=== PATIENT | female | born 1990 | race Caucasian/White ===

== ENCOUNTER 2016-04-26 09:55 | Emergency (ER) | payer BC ==
--- NOTE | 2016-04-26 11:57 | UC ---
Throat Pain/Nasal Adonay HPI - HPI Summary HPI Summary: complaint of nasal congestion and couth that started 3 days ago extremely painful sore throat occasional coughing fits bilateral ear pain denies headaches denies fever but has had chills taking cold lozenges and sudafed with minimal relief. - History of Current Complaint Stated Complaint: UPPER RESPIRATORY Time Seen by Provider: 04/26/16 11:50 Hx Obtained From: Patient Hx Last Menstrual Period: 10/16/15 ?: No Cough: Nonproductive - Allergies/Home Medications Allergies/Adverse Reactions: Allergies Allergy/AdvReac Type Severity Reaction Status Date / Time CONTROLL WITH ESTROGEN Allergy Intermediate WEIGHT GAIN Uncoded 04/26/16 12:12 PMH/Surg Hx/FS Hx/Imm Hx Previously Healthy: Yes Endocrine History Of: Denies: Diabetes Cardiovascular History Of: Denies: Cardiac Disorders Respiratory History Of: Denies: Asthma Psychological History Of: Reports: Anxiety, Depression - Surgical History Surgical History: None - Family History Known Family History: Positive: Cardiac Disease - grandmother, Hypertension Negative: Diabetes - Social History Occupation: Employed Full-time Lives: With Family Alcohol Use: Occasionally Substance Use Type: None, Marijuana Substance Use Comment - Amount & Last Used: RARELY Smoking Status (MU): Light Every Day Tobacco Smoker Type: Cigarettes Amount Used/How Often: 1/2 PPD Household Exposure Type: Cigarettes Cessation Counseling: Patient Advised to Stop Review of Systems Constitutional: Chills Skin: Negative Eyes: Negative ENT: Sore Throat, Ear Ache, Nasal Discharge Respiratory: Cough Cardiovascular: Negative Gastrointestinal: Negative Genitourinary: Negative Motor: Negative Neurovascular: Negative Musculoskeletal: Negative Neurological: Negative Psychological: Negative All Other Systems Reviewed And Are Negative: Yes Physical Exam Triage Information Reviewed: Yes Appearance: No Pain Distress, Well-Nourished, Ill-Appearing Vital Signs Reviewed: Yes Eyes: Positive: Conjunctiva Clear ENT: Positive: Pharyngeal erythema, Nasal congestion, TMs normal. Negative: Tonsillar swelling, Tonsillar exudate Dental: Negative: Cervical Lymphadenopathy Neck: Positive: No Lymphadenopathy Respiratory: Positive: Lungs clear, Normal breath sounds, No respiratory distress Cardiovascular: Positive: RRR, No Murmur, Pulses Normal Abdomen Description: Positive: Nontender, Soft Bowel Sounds: Positive: Present Musculoskeletal: Positive: No Edema Neurological: Positive: Alert Psychological Exam: Normal Skin Exam: Normal Throat Pain/Nasal Course/Dx - Differential Dx/Diagnosis Differential Diagnosis/HQI/PQRI: Pharyngitis, Tonsillitis, URI Provider Diagnoses: URI Discharge - Discharge Plan Condition: Stable Disposition: HOME Prescriptions: Benzonatate CAP* [Tessalon CAP*] 100 mg PO TID PRN #30 cap PRN Reason: Cough Patient Education Materials: Upper Respiratory Infection (ED) Referrals: No Primary Care Phys,NOPCP [Primary Care Provider] - [facility] [place] [facility] [Outside] Additional Instructions: VIRAL UPPER RESPIRATORY INFECTION (COMMON COLD) What is Viral Upper Respiratory Infection? Viral upper respiratory infection is the medical term for the common cold. Respiratory infections can be caused by either a virus or bacteria. The common cold is caused by a virus. The virus travels through the air and can be passed easily from one person to another. This is one reason that it is so important to cover your mouth when you cough or sneeze. When you cover your mouth you will get the virus on your hands. If you touch something with that hand the virus is spread to the object you touch. Because of this you should be sure to wash your hands often when you have a cold. Symptoms usually begin 1 to 3 days after the virus takes hold in your body. Other people can catch your cold even before you start to notice symptoms, which is one reason why colds are hard to prevent. Symptoms May Include: Scratchiness or tickling in the throat Sore throat Stuffy nose Generalized aches and pains Coughing or sneezing Feeling tired Treatment Recommendations: Drink plenty of clear, nonalcoholic fluids, such as water, sports drinks, or juice. For example, an average adult should drink 8 ounces every hour, a child 6 to 10 years should drink 4 ounces every hour, and a child under 6 should drink 1 to 2 ounces every hour. You should rest as much as possible. You can use a cool-mist humidifier or steam vaporizer to increase air moisture. This will make it easier to breathe. Remember that a steam vaporizer may contain hot water that can cause severe feliciano. If you smoke, stopsmoke irritates bronchial passages. If you are coughing up mucus, and milk seems to make the sputum thicker, do not eat or drink foods that contain milk. You want to try to cough up mucous whenever possible so that you dont get pneumonia. Do not use cough suppressant medicine without your healthcare providers [place]. You should take all medications prescribed until completely gone, or as instructed. Non-prescription medicine such as acetaminophen (Tylenol) or ibuprofen (Motrin , Advil) may help your aches, pains, and fever. Do not take someone else's medicine, or penicillin tablets that you may have saved. You could cause a more serious problem than you already have. Don't bundle up to sweat out a fever. It only makes your fever worse. If you feel cold, cover up; if you feel warm, dress lightly.
[2016-04-26 12:12] VITALS: BP 113/73
== END 2016-04-26 12:26 | disposition home or self-care (01) ==
LOC: UCCORT 09:55
DX: J06.9 Acute upper respiratory infection, unspecified (principal); F12.90 Cannabis use, unspecified, uncomplicated; F17.210 Nicotine dependence, cigarettes, uncomplicated
CPT/HCPCS: 99212; G0463

== ENCOUNTER 2016-11-12 08:23 | Emergency (ER) | payer BC ==
[2016-11-12] MEDS ORDERED: NS 0.9% 1000 ML* 1,000 ML BOLUS ONE (09:31)
[2016-11-12] MEDS ORDERED: Dexamethasone IV* 4 MG/ML 1 ML (4 MG) IV SLOW PU ONE (09:32)
[2016-11-12] MEDS ORDERED: cefTRIAXone VIAL(*) 1,000 MG in NS 0.9% 50 ML* 50 ML IVPB ONE (09:32)
[2016-11-12] MEDS ORDERED: Ketorolac INJ* 30 MG/ML 1 ML VIAL IV ONE (09:33)
--- NOTE | 2016-11-12 09:43 | UC ---
Throat Pain/Nasal Adonay HPI - HPI Summary HPI Summary: 25 yo female with L>R sore throat x 2 days fever chills myalgias today can not tolerate liquids nausea but no vomiting - History of Current Complaint Chief Complaint: UCGeneralIllness Stated Complaint: SORE THROAT Time Seen by Provider: 11/12/16 08:56 Hx Obtained From: Patient Hx Last Menstrual Period: 11/01/16 Onset/Duration: Gradual Onset, Lasting Days Severity: Severe Pain Intensity: 10 Pain Scale Used: 0-10 Numeric Associated Signs & Symptoms: Positive: Dysphagia, Fever, Vomiting. Negative: FB Sensation, Drooling, Wheezing, Hoarseness, Sinus Discomfort, Nasal Discharge , Rash - Epiglottits Risk Factors Epiglottis Risk Factors: Negative - Allergies/Home Medications Allergies/Adverse Reactions: Allergies Allergy/AdvReac Type Severity Reaction Status Date / Time CONTROLL WITH ESTROGEN Allergy Intermediate WEIGHT GAIN Uncoded 11/12/16 08:43 PMH/Surg Hx/FS Hx/Imm Hx Previously Healthy: Yes - Surgical History Surgical History: None - Family History Known Family History: Positive: Cardiac Disease - grandmother, Hypertension Negative: Diabetes - Social History Alcohol Use: Rare Substance Use Type: Marijuana Substance Use Comment - Amount & Last Used: 11/10/16 Smoking Status (MU): Current Some Day Smoker Type: Cigarettes Amount Used/How Often: 3-5 CIGS/DAY Household Exposure Type: Cigarettes - Immunization History Most Recent Influenza Vaccination: NONE 2015 Review of Systems Constitutional: Fever, Chills, Fatigue Skin: Negative Eyes: Negative ENT: Sore Throat Respiratory: Negative Cardiovascular: Negative Gastrointestinal: Nausea Genitourinary: Negative Motor: Negative Neurovascular: Negative Musculoskeletal: Myalgia Neurological: Headache Psychological: Negative All Other Systems Reviewed And Are Negative: Yes Physical Exam Triage Information Reviewed: Yes Appearance: No Pain Distress, Well-Nourished Vital Signs: Initial Vital Signs Temp 99.7 F 11/12/16 08:46 Pulse 120 11/12/16 08:46 Resp 18 11/12/16 08:46 BP 107/68 11/12/16 08:46 Pulse Ox 100 11/12/16 08:46 Vital Signs Reviewed: Yes Eyes: Positive: Conjunctiva Clear ENT: Positive: Hearing grossly normal, Pharyngeal erythema, TMs normal, Tonsillar swelling, Tonsillar exudate, Other: - MID LINE UVULA/ NO BENITO TONSILLAR ABSCESS NOTED. Negative: Nasal congestion, Nasal drainage, Trismus, Muffled/hoarse voice Neck: Positive: Supple, Tenderness @ - left cervical LNs, Enlarged Nodes @ - L> R cervical Respiratory: Positive: Lungs clear, Normal breath sounds, No respiratory distress, No accessory muscle use Cardiovascular: Positive: RRR, No Murmur, Tachycardia Abdomen Description: Positive: Nontender, No Organomegaly, Soft. Negative: CVA Tenderness (R), CVA Tenderness (L), Hepatomegaly, Splenomegaly Bowel Sounds: Positive: Present Musculoskeletal: Positive: ROM Intact, No Edema Neurological: Positive: Alert Psychological Exam: Normal Skin Exam: Normal Re-Evaluation - Re-Evaluation First Eval Re-Evaluation Time: 10:09 Change: Improved - feeling a little better Second Eval Re-Evaluation Time: 11:04 Change: Improved - no more pain Throat Pain/Nasal Course/Dx - Course Course Of Treatment: markedly improved after hydration and IV meds - Differential Dx/Diagnosis Provider Diagnoses: acute exudative tonsillitis. dehydration Discharge - Discharge Plan Condition: Stable Disposition: HOME Prescriptions: Cephalexin CAP* [Keflex CAP*] 500 mg PO BID #20 cap Patient Education Materials: Tonsillitis (ED) Forms: *Work Release Referrals: No Primary Care Phys,NOPCP [Primary Care Provider] - Additional Instructions: rest fluids tylenol or advil if needed You can start your antibiotic tonight recheck in 48-72 hours if not better recheck sooner for worsening symptoms
[2016-11-12] MEDS ORDERED: cefTRIAXone VIAL(*) 1,000 MG VIAL ONE (09:48)
[2016-11-12 10:46] VITALS: BP 113/60
== END 2016-11-12 11:20 | disposition home or self-care (01) ==
LOC: UCCORT 08:23
DX: J03.90 Acute tonsillitis, unspecified (principal); E86.0 Dehydration; R11.10 Vomiting, unspecified; R50.9 Fever, unspecified; Z72.0 Tobacco use
CPT/HCPCS: 87651; 96361; 96365; 96375; 99212; G0463; J0696; J1100; J1885

== ENCOUNTER 2016-12-05 08:05 | Emergency (ER) | payer BC ==
[2016-12-05 08:22] VITALS: BP 111/68
--- NOTE | 2016-12-05 08:52 | UC ---
Throat Pain/Nasal Adonay HPI - HPI Summary HPI Summary: seen her a few weeks ago with "tonsillitis" rx with Keflex, seemed to get a little better but now pain swelling and exudates have returned as well as pain in right ear - History of Current Complaint Chief Complaint: UCRespiratory Stated Complaint: SORE THROAT Time Seen by Provider: 12/05/16 08:40 Hx Obtained From: Patient Hx Last Menstrual Period: 11/01/16 ?: No Onset/Duration: Gradual Onset, Worse Since - past few days Severity: Moderate Pain Intensity: 7 Pain Scale Used: 0-10 Numeric Cough: None Associated Signs & Symptoms: Positive: Other - hurts to swallow - Allergies/Home Medications Allergies/Adverse Reactions: Allergies Allergy/AdvReac Type Severity Reaction Status Date / Time CONTROLL WITH ESTROGEN Allergy Intermediate WEIGHT GAIN Uncoded 12/05/16 08:17 PMH/Surg Hx/FS Hx/Imm Hx Previously Healthy: Yes - Surgical History Surgical History: None - Family History Known Family History: Positive: Cardiac Disease - grandmother, Hypertension Negative: Diabetes - Social History Occupation: Unemployed Lives: With Family Alcohol Use: Rare Substance Use Type: None Substance Use Comment - Amount & Last Used: 11/10/16 Smoking Status (MU): Former Smoker Type: Cigarettes Amount Used/How Often: 3-5 CIGS/DAY Household Exposure Type: Cigarettes - Immunization History Most Recent Influenza Vaccination: NONE 2016 Review of Systems Constitutional: Negative Skin: Negative Eyes: Negative ENT: Sore Throat, Ear Ache - right Respiratory: Negative Cardiovascular: Negative Gastrointestinal: Negative Genitourinary: Negative Motor: Negative Neurovascular: Negative Musculoskeletal: Negative Neurological: Negative Psychological: Negative Is Patient Immunocompromised?: No All Other Systems Reviewed And Are Negative: Yes Physical Exam Triage Information Reviewed: Yes Appearance: Well-Nourished, Ill-Appearing - mild, Pain Distress - mild Vital Signs: Initial Vital Signs Temp 99 F 12/05/16 08:18 Pulse 90 12/05/16 08:18 Resp 18 12/05/16 08:18 BP 111/68 12/05/16 08:18 Pulse Ox 100 12/05/16 08:18 Vital Signs Reviewed: Yes Eye Exam: Normal Eyes: Positive: Conjunctiva Clear ENT Exam: Normal ENT: Positive: Normal ENT inspection, Hearing grossly normal, Pharynx normal, TMs normal, Tonsillar swelling, Tonsillar exudate, Trismus, Muffled/hoarse voice. Negative: Nasal congestion, Nasal drainage Dental Exam: Normal Neck exam: Normal Neck: Positive: Supple, Nontender, No Lymphadenopathy Respiratory Exam: Normal Respiratory: Positive: Chest non-tender, Lungs clear, Normal breath sounds, No respiratory distress, No accessory muscle use Cardiovascular Exam: Normal Cardiovascular: Positive: RRR, No Murmur, Pulses Normal, Brisk Capillary Refill Musculoskeletal Exam: Normal Musculoskeletal: Positive: Strength Intact, ROM Intact, No Edema Neurological Exam: Normal Neurological: Positive: Alert, Muscle Tone Normal Psychological Exam: Normal Skin Exam: Normal Diagnostics - Laboratory Diagnostic Studies Completed/Ordered: RST (-) u preg (-) Throat Pain/Nasal Course/Dx - Course Assessment/Plan: Rocephin, zithromax, full throat culture, 5 days of prednisine follow with pcp - Differential Dx/Diagnosis Differential Diagnosis/HQI/PQRI: Otitis Media, Pharyngitis, Sinusitis, Tonsillitis, URI Provider Diagnoses: Exudative Tonsillitis Discharge - Discharge Plan Condition: Stable Disposition: HOME Prescriptions: Azithromycin TAB* [Zithromax TAB (Z-SHELIA) 250 mg #6 tabs] 2 tab PO .TODAY, THEN 1 DAILY #1 shelia predniSONE TAB* [Deltasone TAB*] 50 mg PO DAILY #4 tab Patient Education Materials: Tonsillitis (ED) Referrals: [facility] [place] [facility] [Outside] - 1 Week
[2016-12-05] MEDS ORDERED: Acetaminophen TAB* 325 MG PO ONE (08:56)
[2016-12-05] MEDS ORDERED: cefTRIAXone VIAL(*) 250 MG VIAL IM ONE (09:19)
[2016-12-05] MEDS ORDERED: Lidocaine 1% MPF* 2 ML VIAL INJ ONE (09:19)
[2016-12-05] MEDS ORDERED: Azithromycin TAB* 250 MG PO ONE (10:53)
== END 2016-12-05 09:42 | disposition home or self-care (01) ==
LOC: UCCORT 08:05
DX: J03.90 Acute tonsillitis, unspecified (principal); H92.01 Otalgia, right ear; Z32.02 Encounter for pregnancy test, result negative; Z87.891 Personal history of nicotine dependence
CPT/HCPCS: 84702; 87070; 87077; 87651; 96372; 99213; A9270-GY; G0463; J0696

== ENCOUNTER 2017-02-02 18:13 | Emergency (ER) | payer BC ==
--- NOTE | 2017-02-02 19:27 | UC ---
Bite Injury/Animal HPI - HPI Summary HPI Summary: 26 YEAR OLD FEMALE PRESENTS WITH INSECT BITE ON RIGHT THIGH. - History of Current Complaint Stated Complaint: SPIDER BITE Time Seen by Provider: 02/02/17 19:26 Hx Obtained From: Patient Hx Last Menstrual Period: 11/01/16 Severity Currently: Moderate Severity Initially: Moderate Pain Scale Used: 0-10 Numeric - 4 Onset/Duration: Sudden Onset Type of Bite: Animal - INSECT Character: Puncture - Allergies/Home Medications Allergies/Adverse Reactions: Allergies Allergy/AdvReac Type Severity Reaction Status Date / Time CONTROLL WITH ESTROGEN Allergy Intermediate WEIGHT GAIN Uncoded 02/02/17 19:35 PMH/Surg Hx/FS Hx/Imm Hx Previously Healthy: Yes - Surgical History Surgical History: None - Family History Known Family History: Positive: Cardiac Disease - grandmother, Hypertension Negative: Diabetes - Social History Alcohol Use: Rare Substance Use Type: None Substance Use Comment - Amount & Last Used: 11/10/16 Smoking Status (MU): Former Smoker Type: Cigarettes Amount Used/How Often: 3-5 CIGS/DAY Household Exposure Type: Cigarettes - Immunization History Most Recent Influenza Vaccination: NONE 2016 Review of Systems Constitutional: Negative Skin: Other - INSECT BITE RIGHT THIGH Eyes: Negative ENT: Negative Respiratory: Negative Cardiovascular: Negative Gastrointestinal: Negative Genitourinary: Negative Motor: Negative Neurovascular: Negative Musculoskeletal: Negative Neurological: Negative Psychological: Negative All Other Systems Reviewed And Are Negative: Yes Physical Exam Triage Information Reviewed: Yes Vital Signs Reviewed: Yes Eye Exam: Normal ENT Exam: Normal Dental Exam: Normal Neck exam: Normal Neck: Positive: 1 Respiratory Exam: Normal Cardiovascular Exam: Normal Abdominal Exam: Normal Musculoskeletal Exam: Normal Neurological Exam: Normal Psychological Exam: Normal Skin: Positive: Other - INSECT BITE RIGHT THIGH Bite Injury Course/Dx - Differential Dx/Diagnosis Provider Diagnoses: INSECT BITE RIGHT THIGH Discharge - Discharge Plan Condition: Stable Disposition: HOME Prescriptions: Mupirocin 2% OINT* [Bactroban 2 % Oint*] 1 applic TOPICAL BID #1 tube Sulfamethox/Trimethoprim DS* [Bactrim DS 800/160 TAB*] 1 tab PO BID #14 tab Patient Education Materials: Insect Bite or Sting (ED) Referrals: No Primary Care Phys,NOPCP [Primary Care Provider] -
== END 2017-02-02 20:15 | disposition home or self-care (01) ==
LOC: UCCORT 18:13
DX: S70.361A Insect bite (nonvenomous), right thigh, initial encounter (principal); W57.XXXA Bitten or stung by nonvenomous insect and other nonvenomous arthropods, initial encounter; Y93.9 Activity, unspecified; Y92.9 Unspecified place or not applicable; Y99.9 Unspecified external cause status; Z87.891 Personal history of nicotine dependence
CPT/HCPCS: 87070; 87205; 99212; G0463